=== PATIENT | female | born 1965 | race Caucasian/White ===

== ENCOUNTER 2025-02-02 17:08 | Emergency (ER) | payer MEDICAID, OTHER ==
[~2025-02-02] VITALS: Ht 157.5 cm; Wt 68.0 kg
[2025-02-02 17:09] VITALS: O2SAT 98
[2025-02-02] MEDS ORDERED: IBUP-1455 MT (18:57)
[2025-02-02] MEDS ORDERED: METH-653 MT (18:57)
[2025-02-02] MEDS ORDERED: LIDO700A30 TP (18:57)
[2025-02-02] MEDS: METHOCARBAMOL 500MG TABLET PO ONE (19:08)
[2025-02-02] MEDS: KETOROLAC 30MG/ML VIAL IM ONE (19:08)
[2025-02-02 20:27] VITALS: BP 129/51; PULSE 76; RESP 16; TEMP 36.8; O2SAT 100
== END 2025-02-02 20:34 | disposition home or self-care (01) ==
LOC: ER 17:08
DX: S33.5XXA Sprain of ligaments of lumbar spine, initial encounter (principal); I10 Essential (primary) hypertension; Z79.899 Other long term (current) drug therapy; V49.9XXA Car occupant (driver) (passenger) injured in unspecified traffic accident, initial encounter; Y93.89 Activity, other specified; Y92.410 Unspecified street and highway as the place of occurrence of the external cause; Y99.8 Other external cause status
CPT/HCPCS: 99283; 72100; 96372; J1885